=== PATIENT | female | born 1965 | race Caucasian/White ===

== ENCOUNTER 2020-01-11 12:38 | Emergency (ER) | payer MEDICAID ==
[~2020-01-11] VITALS: Ht 154.9 cm; Wt 62.1 kg
[2020-01-11 12:50] VITALS: BP_SYST 152
[2020-01-11 13:21] LABS: BASOPHILS % (AUTO) 0.7 % (0.0-2.0); EOSINOPHILS # (AUTO) 0.5 K/uL (0.0-0.4); EOSINOPHILS % (AUTO) 6.3 % (0.0-4.0); HEMATOCRIT 42.6 % (36-48); HEMOGLOBIN 14.9 g/dL (12.0-16.0); LYMPHOCYTES # (AUTO) 2.4 K/uL (1.0-5.5); LYMPHOCYTES % (AUTO) 32.6 % (20.5-51.5); MEAN CORPUSCULAR HEMOGLOBIN 33 pg (27-31); MEAN CORPUSCULAR HGB CONC 35 % (32-36); MEAN CORPUSCULAR VOLUME 95 fL (79.0-98.0); MONOCYTES # (AUTO) 0.7 K/uL (0.0-1.0); MONOCYTES % (AUTO) 9.1 % (1.7-9.3); NEUTROPHILS # (AUTO) 3.8 K/uL (1.8-7.7); NEUTROPHILS % (AUTO) 51.3 % (40.0-70.0); PLATELET COUNT (AUTO) 199 K/uL (130-430); RED BLOOD CELL COUNT(AUTO) 4.49 MIL/uL (4.2-6.2); RED CELL DISTRIBUTION WIDTH 12.2 % (9.0-15.0); WHITE BLOOD COUNT (AUTO) 7.4 K/uL (4.8-10.8)
[2020-01-11] MEDS: KETOROLAC TROMETHAMINE 30 MG VIAL IVP ONE (13:29)
[2020-01-11 13:40] LABS: CALCIUM 9.2 mg/dL (8.4-11.0); CREATININE 1.13 mg/dL (0.55-1.30)
[2020-01-11 13:41] LABS: POTASSIUM 3.8 mmol/L (3.5-5.1)
[2020-01-11 13:44] LABS: ALBUMIN 3.7 g/dL (3.4-4.8); TOTAL BILIRUBIN 0.5 mg/dL (0.0-1.0)
[2020-01-11] MEDS: MORPHINE 4 MG/ML INJ. SYRINGE IVP ONE (14:14)
[2020-01-11] MEDS: ONDANSETRON HCL 4 MG/2 ML VIAL IVP ONE (14:14)
[2020-01-11] MEDS ORDERED: DIATR MEGLU/DIATRIZ SOD 30 ML SOLUTION PO ONE (14:52)
[2020-01-11] MEDS ORDERED: IOHEXOL 100 ML IV ONE (15:52)
[2020-01-11 16:43] VITALS: BP_SYST 128
== END 2020-01-11 16:44 | disposition home or self-care (01) ==
LOC: SED 12:38
DX: R10.13 Epigastric pain (principal)
CPT/HCPCS: 36415; 74177; 76700; 80053; 83690; 85025; 93005; 96374; 96375; 99285; J1885; J2270; J2405; J7030; Q9964; Q9967

== ENCOUNTER 2022-02-09 10:34 | Emergency (ER) | payer OTHER, MEDICAID ==
[~2022-02-09] VITALS: Ht 149.9 cm; Wt 47.2 kg
[2022-02-09 10:51] VITALS: BP_SYST 137
--- NOTE | 2022-02-09 10:56 | NUR ---
Patient to ER bed 7 to gown for evaluation. Side rails up. Report given to NORA PETERS.
[2022-02-09] MEDS ORDERED: DIPHENHYDRAMINE INJ 50 MG/ML VIAL IM ONE (11:15)
[2022-02-09] MEDS ORDERED: MORPHINE 4 MG INJ. 4 MG/ML VIAL IM ONE (11:15)
--- NOTE | 2022-02-09 11:21 | NUR ---
pt bib self to ER from home. CC Pain in neck left side of body. Pt denies nausea vomiting. Pt indicates headache. Pt with pain located at the sacral area with bruising. Skin intact, [id number]. Pt states 5 days ago hiking in [place] fell down a 6 [address]ank[place].
--- NOTE | 2022-02-09 11:21 | NUR ---
ER at bedside examining patient.
--- NOTE | 2022-02-09 11:33 | NUR ---
Note gaby in EDM - 02/09/22 at 1157 by [email or web address] Patient given written and verbal discharge instructions and verbalizes understanding. ER discussed with patient the results and treatment provided. Patient in stable condition. ID arm band removed. Rx of Valium and Naproxen given. Patient educated on pain management and to follow up with PMD. Opportunity for questions provided and answered. Medication side effect fact sheet provided.
[2022-02-09] MEDS ORDERED: HYDR-3917 PO (12:00)
[2022-02-09] MEDS ORDERED: SOM350 PO (12:00)
[2022-02-09] MEDS ORDERED: NAPR-688 PO (12:00)
--- NOTE | 2022-02-09 12:01 | NUR ---
PT RESTING AT [address] POS[address] IN [facility]. AMBULATES STEADILY TO RESTROOM, ASSISTANCE NEEDED RETURNING TO [facility]. PT C/O 8/ NECK PAIN.
[2022-02-09 12:31] VITALS: BP_SYST 137
== END 2022-02-09 12:31 | disposition home or self-care (01) ==
LOC: SED 10:34
DX: S32.10XA Unspecified fracture of sacrum, initial encounter for closed fracture (principal); S13.4XXA Sprain of ligaments of cervical spine, initial encounter; S39.012A Strain of muscle, fascia and tendon of lower back, initial encounter; Z79.899 Other long term (current) drug therapy; W17.81XA Fall down embankment (hill), initial encounter; Y93.89 Activity, other specified; Y92.89 Other specified places as the place of occurrence of the external cause; Y99.8 Other external cause status
CPT/HCPCS: 99284; 72040; 72100; 72220; 96372; J1200; J2270

== ENCOUNTER 2022-12-27 08:43 | Emergency (ER) | payer OTHER, MEDICAID ==
[~2022-12-27] VITALS: Ht 149.9 cm; Wt 54.4 kg
[~2022-12-27 08:43] MED LIST: HYDR-3917 PO; NAPR-688 PO; SOM350 PO
[2022-12-27] MEDS ORDERED: KETOROLAC TROMETHAMINE 30 MG VIAL IVP ONE (09:00)
[2022-12-27] MEDS ORDERED: NACL 0.9% 1,000 ML IV ONE (09:00)
[2022-12-27 09:24] LABS: BILIRUBIN,URINE NEGATIVE (NEGATIVE); BLOOD, URINE NEGATIVE (NEGATIVE); CLARITY/URINE CLEAR (CLEAR); COLOR,URINE YELLOW (YELLOW); GLUCOSE,URINE NEGATIVE (NEGATIVE); KETONES,URINE NEGATIVE (NEGATIVE); LEUKOCYTE ESTERASE ,URINE TRACE (NEGATIVE); NITRITE, URINE NEGATIVE (NEGATIVE); PROTEIN URINE NEGATIVE (NEGATIVE); UROBILINOGEN,URINE 0.2 (0.2-1.0)
[2022-12-27 09:29] LABS: BACTERIA,URINE FEW /HPF (None Seen); RBC,URINE 0-3 /HPF (0-3)
[2022-12-27 09:48] LABS: BASOPHILS % (AUTO) 0.9 % (0.0-2.0); CALCIUM 8.8 mg/dL (8.4-11.0); CREATININE 0.92 mg/dL (0.55-1.30); EOSINOPHILS % (AUTO) 5.2 % (0.0-4.0); HEMOGLOBIN 14.4 g/dL (12.0-16.0); LYMPHOCYTES # (AUTO) 1.9 K/uL (1.0-5.5); LYMPHOCYTES % (AUTO) 45.5 % (20.5-51.5); MEAN CORPUSCULAR HEMOGLOBIN 32 pg (27-31); MEAN CORPUSCULAR HGB CONC 34 % (32-36); MEAN CORPUSCULAR VOLUME 95 fL (79.0-98.0); MONOCYTES % (AUTO) 8.7 % (1.7-9.3); NEUTROPHILS # (AUTO) 1.6 K/uL (1.8-7.7); NEUTROPHILS % (AUTO) 39.7 % (40.0-70.0); PLATELET COUNT (AUTO) 195 K/uL (130-430); POTASSIUM 3.7 mmol/L (3.5-5.1); RED BLOOD CELL COUNT(AUTO) 4.55 MIL/uL (4.2-6.2); RED CELL DISTRIBUTION WIDTH 12.8 % (9.0-15.0); WHITE BLOOD COUNT (AUTO) 4.1 K/uL (4.8-10.8)
[2022-12-27 09:49] LABS: EOSINOPHILS # (AUTO) 0.2 K/uL (0.0-0.4); MONOCYTES # (AUTO) 0.4 K/uL (0.0-1.0)
[2022-12-27 09:53] LABS: ALBUMIN 3.6 g/dL (3.4-4.8); TOTAL BILIRUBIN 0.4 mg/dL (0.0-1.0); TOTAL PROTEIN, SERUM 7.8 g/dL (6.4-8.3)
[2022-12-27] MEDS ORDERED: ONDANSETRON HCL 4 MG/2 ML VIAL IVP ONE (11:00)
[2022-12-27] MEDS ORDERED: MORPHINE 4 MG INJ. 4 MG/ML VIAL IVP ONE (11:00)
[2022-12-27] MEDS ORDERED: MOM PO (12:09)
[2022-12-27] MEDS ORDERED: LISI20TA30 PO (12:16)
[2022-12-27 13:20] VITALS: BP_SYST 186; PULSE 128; RESP 16; TEMP 101; O2SAT 100
== END 2022-12-27 12:25 | disposition home or self-care (01) ==
LOC: SED 08:43
DX: K59.00 Constipation, unspecified (principal); R10.12 Left upper quadrant pain; R55 Syncope and collapse; Z79.899 Other long term (current) drug therapy
CPT/HCPCS: 99285; 71250; 96374; 96375; 96361; 80053; 81000; 85025; 87040; 36415; 93005; 76376; 74176; J1885; J2405; J2270; J7030

== ENCOUNTER 2023-05-13 13:49 | Emergency (ER) | payer OTHER, MEDICAID ==
[~2023-05-13] VITALS: Ht 152.4 cm; Wt 49.4 kg
[~2023-05-13 13:49] MED LIST changes: +LISI20TA30 PO; +MOM PO
[2023-05-13 13:52] VITALS: BP_SYST 176; PULSE 84; RESP 20; TEMP 97.6; O2SAT 100
[2023-05-13] MEDS ORDERED: HYDROmorphone 2 MG/ML VIAL ONE (14:47)
[2023-05-13] MEDS ORDERED: MIDAZOLAM HCL 2 MG/2 ML VIAL (VERSED) ONE (14:47)
[2023-05-13 14:52] LABS: BILIRUBIN,URINE NEGATIVE (NEGATIVE); BLOOD, URINE NEGATIVE (NEGATIVE); CLARITY/URINE CLEAR (CLEAR); COLOR,URINE YELLOW (YELLOW); GLUCOSE,URINE NEGATIVE (NEGATIVE); KETONES,URINE NEGATIVE (NEGATIVE); LEUKOCYTE ESTERASE ,URINE NEGATIVE (NEGATIVE); NITRITE, URINE NEGATIVE (NEGATIVE); PH,URINE 7.5 (5.0-8.0); PROTEIN URINE NEGATIVE (NEGATIVE); UROBILINOGEN,URINE 0.2 (0.2-1.0)
[2023-05-13 15:46] LABS: EOSINOPHILS # (AUTO) 0.7 K/uL (0.0-0.4); LYMPHOCYTES # (AUTO) 1.6 K/uL (1.0-5.5); MONOCYTES # (AUTO) 0.4 K/uL (0.0-1.0)
[2023-05-13 15:50] LABS: BASOPHILS # (AUTO) 0.1 K/uL (0.0-0.2); BASOPHILS % (AUTO) 1.3 % (0.0-2.0); EOSINOPHILS % (AUTO) 15.5 % (0.0-4.0); HEMOGLOBIN 15.5 g/dL (12.0-16.0); LYMPHOCYTES % (AUTO) 33.8 % (20.5-51.5); MEAN CORPUSCULAR HEMOGLOBIN 32 pg (27-31); MEAN CORPUSCULAR HGB CONC 34 % (32-36); MEAN CORPUSCULAR VOLUME 93 fL (79.0-98.0); MONOCYTES % (AUTO) 8.8 % (1.7-9.3); NEUTROPHILS # (AUTO) 1.9 K/uL (1.8-7.7); NEUTROPHILS % (AUTO) 40.6 % (40.0-70.0); PLATELET COUNT (AUTO) 210 K/uL (130-430); RED BLOOD CELL COUNT(AUTO) 4.84 MIL/uL (4.2-6.2); RED CELL DISTRIBUTION WIDTH 13.1 % (9.0-15.0); WHITE BLOOD COUNT (AUTO) 4.8 K/uL (4.8-10.8)
[2023-05-13 15:59] LABS: ANION GAP 7 (5-15); CALCIUM 9.5 mg/dL (8.4-11.0); CARBON DIOXIDE 29 mmol/L (23-29); CHLORIDE 106 mmol/L (98-107); CREATININE 0.83 mg/dL (0.55-1.30); GFR AFRICAN AMERICAN 90 mL/min (>90); GFR NON AFRICAN-AMERICAN 75 mL/min (>90); GLUCOSE 77 mg/dL (74-106); POTASSIUM 3.9 mmol/L (3.5-5.1); SODIUM SERUM 142 mmol/L (136-145); UREA NITROGEN, BLOOD 9 mg/dL (8-21)
[2023-05-13] MEDS ORDERED: MORPHINE 2 MG/ML INJ. SYRINGE IM ONE (16:00)
[2023-05-13 16:12] LABS: ALANINE AMINOTRANSFERASE 105 U/L (12-78); ALBUMIN 3.7 g/dL (3.4-4.8); ASPARTATE AMINOTRANSFERASE 89 U/L (10-37); BILIRUBIN,DIRECT 0.1 mg/dL (0.0-0.3); CREATINE KINASE, TOTAL 73 U/L (26-192); FREE T4 (FREE THYROXINE) 0.9 ng/dL (0.6-1.6); LIPASE 69 U/L (16-77); THYROID STIMULATING HORMONE 1.27 uIu/mL (0.34-4.82); TOTAL BILIRUBIN 0.4 mg/dL (0.0-1.0); TOTAL PROTEIN, SERUM 8.3 g/dL (6.4-8.3)
[2023-05-13] MEDS ORDERED: IBUP-1969 PO (16:32)
[2023-05-13] MEDS ORDERED: TRAM50TA2 PO (16:32)
[2023-05-13] MEDS ORDERED: cloNIDine HCL 0.1 MG TABLET PO ONE ×2 (16:45)
[2023-05-13] MEDS ORDERED: cloNIDine HCL 0.1 MG TABLET ONE (16:48)
[2023-05-13 16:57] VITALS: BP_SYST 222; PULSE 84; RESP 20; TEMP 97.6; O2SAT 100
== END 2023-05-13 16:57 | disposition home or self-care (01) ==
LOC: SED 13:49
DX: R07.89 Other chest pain (principal); R10.9 Unspecified abdominal pain; I10 Essential (primary) hypertension; Z79.899 Other long term (current) drug therapy
CPT/HCPCS: 99285; 74176; 71045; 80076; 80048; 81001; 82550; 84439; 83690; 84443; 85025; 84484; 36415; 93005; 76376; 96372; 83605; 81003; J3465; J1170; J2270

== ENCOUNTER 2023-08-25 18:07 | Emergency (ER) | payer OTHER, MEDICAID ==
[~2023-08-25] VITALS: Ht 149.9 cm; Wt 46.3 kg
[2023-08-25 18:07] VITALS: BP_SYST 186; PULSE 91; RESP 19; TEMP 97.2; O2SAT 100
[~2023-08-25 18:07] MED LIST changes: +IBUP-1969 PO; +TRAM50TA2 PO
[2023-08-25] MEDS: IBUPROFEN 800 MG TABLET PO ONE (20:03)
[2023-08-25] MEDS: KETOROLAC TROMETHAMINE 30 MG VIAL IM ONE (21:00)
[2023-08-25 21:14] LABS: BILIRUBIN,URINE NEGATIVE (NEGATIVE); BLOOD, URINE NEGATIVE (NEGATIVE); CLARITY/URINE CLEAR (CLEAR); COLOR,URINE YELLOW (YELLOW); GLUCOSE,URINE NEGATIVE (NEGATIVE); KETONES,URINE NEGATIVE (NEGATIVE); LEUKOCYTE ESTERASE ,URINE TRACE (NEGATIVE); NITRITE, URINE NEGATIVE (NEGATIVE); PROTEIN URINE NEGATIVE (NEGATIVE); UROBILINOGEN,URINE 0.2 (0.2-1.0)
[2023-08-25] MEDS: cloNIDine HCL 0.1 MG TABLET PO ONE (21:24)
[2023-08-25 21:32] LABS: BACTERIA,URINE FEW /HPF (None Seen); RBC,URINE 0-3 /HPF (0-3)
[2023-08-25] MEDS ORDERED: LISINOPRIL 10 MG TABLET (PRINIVIL) PO ONE (22:15)
[2023-08-25] MEDS: LABETALOL HCL 20 MG/4 ML CARTRIDGE IVP ONE (22:15)
[2023-08-25 22:25] LABS: BASOPHILS # (AUTO) 0.2 K/uL (0.0-0.2); EOSINOPHILS # (AUTO) 0.3 K/uL (0.0-0.4); EOSINOPHILS % (AUTO) 4.2 % (0.0-4.0); HEMATOCRIT 41.2 % (36-48); LYMPHOCYTES # (AUTO) 2.7 K/uL (1.0-5.5); LYMPHOCYTES % (AUTO) 43.1 % (20.5-51.5); MEAN CORPUSCULAR HEMOGLOBIN 31 pg (27-31); MEAN CORPUSCULAR HGB CONC 34 % (32-36); MEAN CORPUSCULAR VOLUME 92 fL (79.0-98.0); MONOCYTES # (AUTO) 0.5 K/uL (0.0-1.0); MONOCYTES % (AUTO) 7.4 % (1.7-9.3); NEUTROPHILS # (AUTO) 2.6 K/uL (1.8-7.7); NEUTROPHILS % (AUTO) 42.3 % (40.0-70.0); PLATELET COUNT (AUTO) 196 K/uL (130-430); RED BLOOD CELL COUNT(AUTO) 4.48 MIL/uL (4.2-6.2); RED CELL DISTRIBUTION WIDTH 12.5 % (9.0-15.0); WHITE BLOOD COUNT (AUTO) 6.2 K/uL (4.8-10.8)
[2023-08-25 22:28] LABS: ANION GAP 9 (5-15); CALCIUM 8.3 mg/dL (8.4-11.0); CARBON DIOXIDE 29 mmol/L (23-29); CHLORIDE 106 mmol/L (98-107); CREATININE 0.83 mg/dL (0.55-1.30); GFR AFRICAN AMERICAN 90 mL/min (>90); GLUCOSE 93 mg/dL (74-106); POTASSIUM 3.2 mmol/L (3.5-5.1); SODIUM SERUM 144 mmol/L (136-145); UREA NITROGEN, BLOOD 15 mg/dL (8-21)
[2023-08-25 22:29] LABS: GFR NON AFRICAN-AMERICAN 75 mL/min (>90)
[2023-08-25] MEDS: KETOROLAC TROMETHAMINE 15 MG VIAL IVP ONE (22:43)
[2023-08-25] MEDS: hydrALAZINE HCL 20 MG/ML VIAL IVP ONE (22:53)
[2023-08-25] MEDS: ASPIRIN 325 MG TABLET PO ONE (23:19)
[2023-08-25] MEDS: MORPHINE 2 MG/ML INJ. SYRINGE IVP ONE (23:23)
[2023-08-25] MEDS ORDERED: AMLO5TAB4 PO (23:49)
[2023-08-25] MEDS ORDERED: LISI1TAB57 PO (23:49)
[2023-08-26 00:25] VITALS: BP_SYST 113; PULSE 68; RESP 18; TEMP 97.6; O2SAT 97
== END 2023-08-26 00:25 | disposition home or self-care (01) ==
LOC: SED 18:07
DX: R10.32 Left lower quadrant pain (principal); I10 Essential (primary) hypertension; F15.90 Other stimulant use, unspecified, uncomplicated
CPT/HCPCS: 99285; 74176; 96374; 96375; 71045; 80048; 81000; 81001; 85025; 84484; 36415; 96372; 81015; J0360; J1885 ×2; J2270

== ENCOUNTER 2023-12-09 13:35 | Emergency (ER) | payer OTHER, MEDICAID ==
[~2023-12-09] VITALS: Ht 152.4 cm; Wt 49.0 kg
[~2023-12-09 13:35] MED LIST changes: +AMLO5TAB4 PO; +LISI1TAB57 PO
[2023-12-09 13:41] VITALS: BP_SYST 131; PULSE 78; RESP 15; TEMP 98.2; O2SAT 99
[2023-12-09] MEDS: KETOROLAC TROMETHAMINE 30 MG VIAL IM ONE (14:33)
[2023-12-09] MEDS ORDERED: HYDR-3917 PO (15:32)
[2023-12-09 16:05] VITALS: BP_SYST 131; PULSE 78; RESP 15; TEMP 98.2; O2SAT 99
== END 2023-12-09 16:06 | disposition home or self-care (01) ==
LOC: SED 13:35
DX: S82.832A Other fracture of upper and lower end of left fibula, initial encounter for closed fracture (principal); I10 Essential (primary) hypertension; Z79.899 Other long term (current) drug therapy; Z79.2 Long term (current) use of antibiotics; X50.1XXA Overexertion from prolonged static or awkward postures, initial encounter; Y93.89 Activity, other specified; Y92.89 Other specified places as the place of occurrence of the external cause; Y99.8 Other external cause status
CPT/HCPCS: 99283; 73610; 96372; J1885